=== PATIENT | female | born 1960 | race Caucasian/White ===

== ENCOUNTER → 2016-07-26 12:03 | Outpatient (CLI) | payer MEDICARE ==
[2014-08-24 09:40] VITALS: BMI 20.9
[~2016-07-26 12:03] MED LIST: AMBIEN5 MG PO; ATIVAN1 MG PO; CELEXA20 MG PO; COPAXONE INJ20 MG/ML SQ; ECOTRIN325 MG PO; MOBIC7.5 MG PO; MYRBETRIQ50 MG PO; PERCOCET 10/3251 TA1 PO; VOLTAREN100 GM TOPICAL
[2016-07-26 14:40] LABS: APPEARANCE TURBID (CLEAR); BACTERIA MODERATE /hpf (NONE SEEN); BILIRUBIN NEGATIVE (NEGATIVE); COLOR YELLOW (YELLOW); EPITHELIAL CELLS OCC /hpf (0-5); GLUCOSE NEGATIVE (NEGATIVE); KETONE NEGATIVE (NEGATIVE); LEUKOCYTE ESTERASE 2+ (NEGATIVE); MUCUS <1+ /lpf (NONE SEEN); NITRITE POSITIVE (NEGATIVE); PROTEIN 2+ mg/dL (NEGATIVE); RED CELLS - URINE >50 /hpf (0-5); SPECIFIC GRAVITY 1.015 (1.005-1.020); UROBILINOGEN NORMAL (NORMAL)
== END | disposition home or self-care (01) ==
LOC: D.LABREF 12:03
PROVIDERS: Family Medicine
DX: L02.212 Cutaneous abscess of back [any part, except buttock and flank] (principal); B95.62 Methicillin resistant Staphylococcus aureus infection as the cause of diseases classified elsewhere; G35 Multiple sclerosis

== ENCOUNTER 2017-09-14 12:59 | Emergency (ER) | payer MEDICARE ==
[2014-08-24 09:40] VITALS: BMI 20.9
[2017-09-14 14:40] LABS: BASOPHILS 0.3 % (0-2); HEMATOCRIT 38.4 % (36.0-48.0); HEMOGLOBIN 12.1 g/dL (12-16); IMMATURE GRANULOCYTES 0.2 % (0-5); MCH 29.6 pg (26.0-34.0); MCHC 31.5 g/dL (31.0-37.0); MCV 93.9 fL (80.0-100.0); MEAN PLATELET VOLUME 11.3 fL (7.4-10.4); MONOCYTES 8.6 % (2-11); NEUTROPHILS 71.9 % (40-80); PLATELET COUNT 214 10x3/uL (130-400); RBC 4.09 10x6/uL (4.00-5.40); RDW 13.9 % (11.5-14.5); WBC 9.4 10x3/uL (4.8-10.8)
[2017-09-14 14:56] LABS: ALBUMIN 2.7 g/dL (3.4-5.0); ALKALINE PHOSPHATASE 82 U/L (46-116); ALT (SGPT) 12 U/L (10-68); CALC OSMOLALITY 277 mosm/kg (275-300); CALCIUM 9.3 mg/dL (8.5-10.1); CARBON DIOXIDE 32.4 mmol/L (21.0-32.0); CHLORIDE - SERUM 103 mmol/L (98-107); CREATININE - SERUM 0.6 mg/dL (0.6-1.3); GLUCOSE 97 mg/dL (74-106); POTASSIUM - SERUM 3.9 mmol/L (3.5-5.1); PROTEIN - SERUM 7.5 g/dL (6.4-8.2); SODIUM 140 mmol/L (136-145); UREA NITROGEN 10 mg/dL (7-18); eGFR NON AFRICAN AMERICAN > 90 mL/min (90-120)
== END 2017-09-14 14:32 | disposition home or self-care (01) ==
LOC: D.ER 12:59
PROVIDERS: Physician Assistant
DX: K59.00 Constipation, unspecified (principal)

== ENCOUNTER 2018-01-26 10:48 | Emergency (ER) | payer MEDICARE ==
[~2018-01-26] VITALS: Ht 167.6 cm; Wt 63.6 kg
[2018-01-26 10:49] VITALS: BP 137/81; Ht 167.6 cm; Wt 63.6 kg
[2018-01-26] MEDS ORDERED: NEURONTIN 300300 MG PO (10:54)
[2018-01-26] MEDS ORDERED: OXYBUTYNIN CHLOR5 MG PO (10:54)
[2018-01-26] MEDS ORDERED: PEPCID AC20 MG PO (10:54)
[2018-01-26] MEDS ORDERED: ALENDRONATE SOD70 MG PO (10:55)
[2018-01-26] MEDS ORDERED: ZANAFLEX2 M1 PO (10:55)
[2018-01-26] MEDS ORDERED: ACETAMINOPHEN500 M1 PO (10:56)
[2018-01-26] MEDS ORDERED: TORADOL10 MG PO (13:33)
== END 2018-01-26 14:46 | disposition home or self-care (01) ==
LOC: D.ER 10:48
DX: S16.1XXA Strain of muscle, fascia and tendon at neck level, initial encounter (principal); X58.XXXA Exposure to other specified factors, initial encounter; Y93.89 Activity, other specified; Y92.019 Unspecified place in single-family (private) house as the place of occurrence of the external cause; S29.012A Strain of muscle and tendon of back wall of thorax, initial encounter; G35 Multiple sclerosis; M54.6 Pain in thoracic spine; G82.50 Quadriplegia, unspecified; K21.9 Gastro-esophageal reflux disease without esophagitis; Z85.828 Personal history of other malignant neoplasm of skin

== ENCOUNTER 2018-03-24 02:22 | Inpatient (IN) | payer MEDICARE ==
[~2018-03-24] VITALS: Ht 167.6 cm; Wt 63.6 kg
[2018-03-24] VITALS (11 sets, daily range): BP systolic 112–167; BP diastolic 52–94; Ht 167.6 cm; Wt 63.6 kg
--- NOTE | ~2018-03-24 | MORECARE ---
CASE MANAGEMENT DISCHARGE SUMMARY PATIENT: GINO CHRIS UNIT: [id number] ADM DATE: 03/24/18 AGE: 57 : 62 SEX: F ROOM/BED: D.2239 AUTHOR: CHRISTEL ANDERS PHYSICIAN: REFERRING PHYSICIAN: BRIAN SALES DO DATE OF SERVICE: 03/28/18 Discharge Plan Patient Name: [facility]INO CHRIS [facility] [facility] 1960 Planned Disposition: Home Anticipated Discharge Date: Discharge Date: Expected LOS: Initial Reviewer: [email or web address] Initial Review Date: 03/28/2018 Generated: 03/28/18 1:21 pm Patient Name: GINO CHRIS Page 71151 at 1221 All edits/amendments must be made on the electronic document DICTATION DATE: 03/28/18 1220 ELECTRICIAN UNDERGROUND: CHARLES 03/28/18 1220 RPT#: [id number] DC DATE: STATUS: ADM IN [facility] [address] [place] [address] END OF REPORT
--- NOTE | ~2018-03-24 | MORECARE ---
CASE MANAGEMENT DISCHARGE SUMMARY PATIENT: GINO CHRIS UNIT: [id number] ADM DATE: 03/24/18 AGE: 57 : 62 SEX: F ROOM/BED: D.2239 AUTHOR: CHRISTEL ANDERS PHYSICIAN: REFERRING PHYSICIAN: BRIAN SALES DO DATE OF SERVICE: 03/28/18 Discharge Plan Patient Name: GINO CHRIS Facility: [facility]:[place] : 1960 Planned Disposition: Home Anticipated Discharge Date: Discharge Date: Expected LOS: Initial Reviewer: [id number] Initial Review Date: 03/28/2018 Generated: 03/28/18 1:28 pm Comments DCP- Discharge Planning Updated by [email or web address]: Katelyn Vivas on 03/28/18 11:[address] Patient Name: GINO CHRIS Admission Status: ER Accout number: [id number] Admission Date: 03-24-2018 : 1960 Admission Diagnosis:ACUTE PYELONEPHRITIS Attending: BRIAN SALES Current LOS: 4 Anticipated DC Date: Planned Disposition: Home Primary Insurance: MEDICARE A & B Discharge Planning Comments: CM met with patient, she is alone in the room. She lives alone. She states she has [facility] come in twice a day. In the morning, they get her dressed and in her electric wheelchair. In the evening, they come back and get her night clothes in and back in bed. They prepare her meals. She is able to feed herself. States her meals come from "[employer]". States her sister, Michelle, also does grocery shopping for her. States she has a "hard telephone line" that she puts on her bedside table in the evening and also she has a life alert on a string if she had an emergency. She declines need for rehab and states she will not go to a fci. States she feels it is a safe discharge to return to her home with resumption of [facility] and home care. She will need to go home via an ambulance. CM will continue to follow and assist with discharge planning/needs. [facility] - [phone] Financial Sales Advisor: Katelyn Vivas DCPIA - Discharge Planning Initial Assessment Updated by [email or web address]: Katelyn Vivas on 03/28/18 12:22 pm * Is the patient Alert and Oriented? Yes * PCP Dr. Jackie Young * Pharmacy [facility] [address] * Preadmission Environment Home Alone * ADLs Partial Dependent * Partial ADLs (Assistance needed) Ambulation Bathing Dressing Toileting Transfers * Equipment Hospital Bed José Luis Lift Other Power Chair or Electric Scooter * Other Equipment Electric wheel chair Hand held remote for bed Air mattress on bed Life Alert on string * List name and contact numbers for known caregivers / representatives who currently or will assist patient after discharge: Michelle Chris [facility] - [phone] * Verbal permission to speak to the caregivers and representatives has been obtained from the patient. Yes * Community resources currently utilized Home Health Private Duty Care * Please name any agencies selected above. [facility] * Additional services required to return to the preadmission environment? No * Can the patient safely return to the preadmission environment? Yes * Has this patient been hospitalized within the prior 30 days at any hospital? No Last DP export: 03/28/18 11:21 a Patient Name: GINO CHRIS Page 41529 at 1228 All edits/amendments must be made on the electronic document DICTATION DATE: 03/28/181227 LUMP MACHINE OPERATOR: CHARLES 03/28/181227 RPT#: [id number] DC DATE: STATUS: ADM IN [facility] [address] [place] [address] END OF REPORT
--- NOTE | ~2018-03-24 | MORECARE ---
CASE MANAGEMENT DISCHARGE SUMMARY PATIENT: GINO CHRIS UNIT: [id number] ADM DATE: 03/24/18 AGE: 57 : 62 SEX: F ROOM/BED: D.2239 AUTHOR: CHRISTEL ANDERS PHYSICIAN: REFERRING PHYSICIAN: BRIAN SALES DO DATE OF SERVICE: 03/30/18 Discharge Plan Patient Name: GINO CHRIS Facility: [facility]:[place] : 1960 Planned Disposition: Home Anticipated Discharge Date: Discharge Date: Expected LOS: Initial Reviewer: [email or web address] Initial Review Date: 03/28/2018 Generated: 03/30/18 10:42 am Comments DCP- Discharge Planning Updated by [email or web address]: Katelyn Vivas on 03/30/18 8:[address] Restrepo has ordered blood cultures to be repeated today and does not agree to discharge today. Dr. Restrepo states need to wait a couple more days. I called Radha at home care and Haydee at [facility] [facility] and informed. I also informed the patient. She asked me to call her sister, Michelle. I called Michelle's number and left a voice mail to return call. CM will continue to follow and assist with discharge planning/needs. DCP- Discharge Planning Updated by [id number]: Katelyn Vivas on 03/30/18 8:[address] Discharging home today with [facility]. I called [employer] [facility] and spoke to Tammy. I called [employer] [facility] and spoke to Radha. She states to call when she is on the ambulance and an aide will meet her at the house. I gave name and number to call to her nurse, Kuldeep. payroll coordinator informed of need for ambulance. Discharging home with home health via ambulance. States "I always go home via ambulance." DCP- Discharge Planning Updated by [email or web address]: Katelyn Vivas on 03/28/18 11:[address] Patient Name: GINO CHRIS Admission Status: ER Accout number: [id number] Admission Date: 03-24-2018 : 1960 Admission Diagnosis:ACUTE PYELONEPHRITIS Attending: BRIAN SALES Current LOS: 4 Anticipated DC Date: Planned Disposition: Home Primary Insurance: MEDICARE A & B Discharge Planning Comments: CM met with patient, she is alone in the room. She lives alone. She states she has [facility] come in twice a day. In the morning, they get her dressed and in her electric wheelchair. In the evening, they come back and get her night clothes in and back in bed. They prepare her meals. She is able to feed herself. States her meals come from "[employer]". States her sister, Michelle, also does grocery shopping for her. States she has a "hard telephone line" that she puts on her bedside table in the evening and also she has a life alert on a string if she had an emergency. She declines need for rehab and states she will not go to a intermediate. States she feels it is a safe discharge to return to her home with resumption of [facility] home care. She will need to go home via an ambulance. CM will continue to follow and assist with discharge planning/needs. [facility] - [phone] Director Of Training: [facility] Discharge Planning Initial Assessment Updated by [email or web address]: Katelyn Vivas on 03/28/18 12:22 pm * Is the patient Alert and Oriented? Yes * PCP Dr. Jackie Young * Pharmacy [facility] * Preadmission Environment Home Alone * ADLs Partial Dependent * Partial ADLs (Assistance needed) Ambulation Bathing Dressing Toileting Transfers * Equipment Hospital Bed José Luis Lift Other Power Chair or Electric Scooter * Other Equipment Electric wheel chair Hand held remote for bed Air mattress on bed Life Alert on string * List name and contact numbers for known caregivers / representatives who currently or will assist patient after discharge: Michelle white - [phone] * Verbal permission to speak to the caregivers and representatives has been obtained from the patient. Yes * Community resources currently utilized Home Health Private Duty Care * Please name any agencies selected above. [facility] * Additional services required to return to the preadmission environment? No * Can the patient safely return to the preadmission environment? Yes * Has this patient been hospitalized within the prior 30 days at any hospital? No Coverage Notice Reviewer: [id number] - Katelyn Vivas Notice Issued Date-Time: 03/30/2018 8:55 Notice Type: IM Discharge Notice Notice Delivered To: Patient Relationship to Patient: Self Rn Icu Name: Delivery Method: HAND - Hand Delivered Araceli Days: Prior Verbal Notification: Recipient Understood Notice: Yes Recipient Signature: Yes Med Rec Note Co-signed by Attending: Coverage Notice Comment: IMM explained, signed, copy given, original placed in MR Last DP export: 03/30/18 8:08 a Patient Name: GINO CHRIS Page 65351 at 0942 All edits/amendments must be made on the electronic document DICTATION DATE: 03/30/18940 MANAGER HEART: CHARLES 03/30/18940 RPT#: [id number] DC DATE: STATUS: ADM IN [facility] [address] [place] [address] END OF REPORT
--- NOTE | ~2018-03-24 | MORECARE ---
CASE MANAGEMENT DISCHARGE SUMMARY PATIENT: GINO CHRIS UNIT: [id number] ADM DATE: 03/24/18 AGE: 57 : 62 SEX: F ROOM/BED: D.2239 AUTHOR: CHRISTEL ANDERS PHYSICIAN: REFERRING PHYSICIAN: BRIAN SALES DO DATE OF SERVICE: 03/30/18 Discharge Plan Patient Name: GINO CHRIS Facility: [facility]:[place] : 1960 Planned Disposition: Home Anticipated Discharge Date: Discharge Date: Expected LOS: Initial Reviewer: [id number] Initial Review Date: 03/28/2018 Generated: 03/30/18 10:08 am Comments DCP- Discharge Planning Updated by [id number]: Katelyn Vivas on 03/30/18 8:[address] Dis[facility]ing [facility] with [facility]. I called [facility] and spoke to Tammy. I called [facility] and spoke to Radha. She states to call when she is on the ambulance and an aide will meet her at the house. I gave name and number to call to her nurse, Kuldeep. sales program coordinator informed of need for ambulance. Discharging home with home health via ambulance. States "I always go home via ambulance." DCP- Discharge Planning Updated by [email or web address]: Katelyn Vivas on 03/28/18 11:[address] Patient Name: GINO CHRIS Admission Status: ER Accout number: [id number] Admission Date: 03-24-2018 : 1960 Admission Diagnosis:ACUTE PYELONEPHRITIS Attending: BRIAN SALES Current LOS: 4 Anticipated DC Date: Planned Disposition: Home Primary Insurance: MEDICARE A & B Discharge Planning Comments: CM met with patient, she is alone in the room. She lives alone. She states she has [facility] come in twice a day. In the morning, they get her dressed and in her electric wheelchair. In the evening, they come back and get her night clothes in and back in bed. They prepare her meals. She is able to feed herself. States her meals come from "[employer]". States her sister, Michelle, also does grocery shopping for her. States she has a "hard telephone line" that she puts on her bedside table in the evening and also she has a life alert on a string if she had an emergency. She declines need for rehab and states she will not go to a chcf. States she feels it is a safe discharge to return to her home with resumption of [facility] home care. She will need to go home via an ambulance. will continue to follow and assist with discharge planning/needs. [facility] - [phone] Chemist: Katelyn Ortega DCPIA - Discharge Planning Initial Assessment Updated by [email or web address]: Katelyn Vivas on 03/28/18 12:22 pm * Is the patient Alert and Oriented? Yes * PCP Dr. Jackie Young * Pharmacy [facility] * Preadmission Environment Home Alone * ADLs Partial Dependent * Partial ADLs (Assistance needed) Ambulation Bathing Dressing Toileting Transfers * Equipment Hospital Bed José Luis Lift Other Power Chair or Electric Scooter * Other Equipment Electric wheel chair Hand held remote for bed Air mattress on bed Life Alert on string * List name and contact numbers for known caregivers / representatives who currently or will assist patient after discharge: Michelle Chris [facility] [phone] * Verbal permission to speak to the caregivers and representatives has been obtained from the patient. Yes * Community resources currently utilized Home Health Private Duty Care * Please name any agencies selected above. [facility] * Additional services required to return to the preadmission environment? No * Can the patient safely return to the preadmission environment? Yes * Has this patient been hospitalized within the prior 30 days at any hospital? No External Providers [facility] Next Contact Date: Service Request Date: Service Type: Resolution: Reviewer: Comments: Coverage Notice Reviewer: [email or web address] - Katelyn Guerreroraul Notice Issued Date-Time: 03/30/2018 8:55 Notice Type: IM Discharge Notice Notice Delivered To: Patient Relationship to Patient: Self Slp Teacher Name: Delivery Method: HAND - Hand Delivered Araceli Days: Prior Verbal Notification: Recipient Understood Notice: Yes Recipient Signature: Yes Med Rec Note Co-signed by Attending: Coverage Notice Comment: IMM explained, signed, copy given, original placed in MR Last DP export: 03/28/18 11:28 a Patient Name: GINO CHRIS Page 90064 at 0908 All edits/amendments must be made on the electronic document DICTATION DATE: 03/30/18906 MASSAGE COORDINATOR: CHARLES 03/30/18906 RPT#: [id number] DC DATE: STATUS: ADM IN [facility] [address] [place] [address] END OF REPORT
--- NOTE | ~2018-03-24 | MORECARE ---
CASE MANAGEMENT DISCHARGE SUMMARY PATIENT: GINO CHRIS UNIT: [id number] ADM DATE: 03/24/18 AGE: 57 : 62 SEX: F ROOM/BED: D.2239 AUTHOR: MARTITA,CHRISTEL PHYSICIAN: REFERRING PHYSICIAN: BRIAN SALES DO DATE OF SERVICE: 04/01/18 Discharge Plan Patient Name: GINO CHRIS Facility: [facility]:[place] : 1960 Planned Disposition: Home Anticipated Discharge Date: Discharge Date: 03/31/2018 Expected LOS: 0 Initial Reviewer: [email or web address] Initial Review Date: 03/28/2018 Generated: 04/01/18 2:57 pm Comments DCP- Discharge Planning Updated by [email or web address]: Katelyn Vivas on 03/31/18 10:[address] Restrepo has agreed with discharge today. I called Radha with [facility] and I spoke with Renetta with [facility] and faxed clinical. She will go home via ambulance today with [facility]. CM will continue to follow and assist with discharge planning/needs DCP- Discharge Planning Updated by [id number]: Katelyn Vivas on 03/30/18 8:[address] Restrepo has ordered blood cultures to be repeated today and does not agree to discharge today. Dr. Restrepo states need to wait a couple more days. I called Radha at home care and Haydee at [employer] [facility] and informed. I also informed the patient. She asked me to call her sister, Michelle. I called Michelle's number and left a voice mail to return call. CM will continue to follow and assist with discharge planning/needs. DCP- Discharge Planning Updated by [email or web address]: Katelyn Vivas on 03/30/18 8:[address] Discharging home today with [facility]. I called [facility] and spoke to Tammy. I called [facility] and spoke to Radha. She states to call when she is on the ambulance and an aide will meet her at the house. I gave name and number to call to her nurse, Kuldeep. rehabilitation coordinator informed of need for ambulance. Discharging home with home health via ambulance. States "I always go home via ambulance." DCP- Discharge Planning Updated by [email or web address]: Katelyn Vivas on 03/28/18 11:[address] Patient Name: GINO CHRIS Admission Status: ER Accout number: [id number] Admission Date: 03-24-2018 : 1960 Admission Diagnosis:ACUTE PYELONEPHRITIS Attending: BRIAN SALES Current LOS: 4 Anticipated DC Date: Planned Disposition: Home Primary Insurance: MEDICARE A & B Discharge Planning Comments: CM met with patient, she is alone in the room. She lives alone. She states she has [facility] come in twice a day. In the morning, they get her dressed and in her electric wheelchair. In the evening, they come back and get her night clothes in and back in bed. They prepare her meals. She is able to feed herself. States her meals come from "[employer]". States her sister, Michelle, also does grocery shopping for her. States she has a "hard telephone line" that she puts on her bedside table in the evening and also she has a life alert on a string if she had an emergency. She declines need for rehab and states she will not go to a long term. States she feels it is a safe discharge to return to her home with resumption of [facility] home care. She will need to go home via an ambulance. CM will continue to follow and assist with discharge planning/needs. [facility] - [phone] Emergency Communications Operator: Katelyn Vivas DCPIA - Discharge Planning Initial Assessment Updated by [email or web address]: Katelyn Vivas on 03/28/18 12:22 pm * Is the patient Alert and Oriented? Yes * PCP Dr. Jackie Young * Pharmacy [facility] * Preadmission Environment Home Alone * ADLs Partial Dependent * Partial ADLs (Assistance needed) Ambulation Bathing Dressing Toileting Transfers * Equipment Hospital Bed José Luis Lift Other Power Chair or Electric Scooter * Other Equipment Electric wheel chair Hand held remote for bed Air mattress on bed Life Alert on string * List name and contact numbers for known caregivers / representatives who currently or will assist patient after discharge: Michelle Chris - sister - [phone] * Verbal permission to speak to the caregivers and representatives has been obtained from the patient. Yes * Community resources currently utilized Home Health Private Duty Care * Please name any agencies selected above. [facility] and [facility] * Additional services required to return to the preadmission environment? No * Can the patient safely return to the preadmission environment? Yes * Has this patient been hospitalized within the prior 30 days at any hospital? No Coverage Notice Reviewer: [email or web address] Sergei Vivas Notice Issued Date-Time: 03/30/2018 8:55 Notice Type: IM Discharge Notice Notice Delivered To: Patient Relationship to Patient: Self In Home Baby Sitter Name: Delivery Method: HAND - Hand Delivered Araceli Days: Prior Verbal Notification: Recipient Understood Notice: Yes Recipient Signature: Yes Med Rec Note Co-signed by Attending: Coverage Notice Comment: IMM explained, signed, copy given, original placed in MR Last DP export: 03/31/18 10:38 a Patient Name: GINO CHRIS Page 55911 at 1357 All edits/amendments must be made on the electronic document DICTATION DATE: 04/01/18 2787 RAIL BENDER: CHARLES 04/01/18 1357 RPT#: [id number] DC DATE:03/31/18 STATUS: DIS IN [facility] [address] [place] [address] END OF REPORT
--- NOTE | ~2018-03-24 | MORECARE ---
CASE MANAGEMENT DISCHARGE SUMMARY PATIENT: GINO CHRIS UNIT: [id number] ADM DATE: 03/24/18 AGE: 57 : 62 SEX: F ROOM/BED: D.2239 AUTHOR: MARTITA,CHRISTEL PHYSICIAN: REFERRING PHYSICIAN: BRIAN SALES DO DATE OF SERVICE: 03/31/18 Discharge Plan Patient Name: GINO CHRIS Facility: [facility]:[place] : 1960 Planned Disposition: Home Anticipated Discharge Date: Discharge Date: Expected LOS: Initial Reviewer: [email or web address] Initial Review Date: 03/28/2018 Generated: 03/31/18 12:38 pm Comments DCP- Discharge Planning Updated by [email or web address]: Katelyn Vivas on 03/31/18 10:[address] Restrepo has agreed with discharge today. I called Radha with [facility] and I spoke with Renetta with [facility] and faxed clinical. She will go home via ambulance today with [facility]. CM will continue to follow and assist with discharge planning/needs DCP- Discharge Planning Updated by [email or web address]: Katelyn Vivas on 03/30/18 8:[address] Restrepo has ordered blood cultures to be repeated today and does not agree to discharge today. Dr. Restrepo states need to wait a couple more days. I called Radha at home care and Haydee at [facility] and informed. I also informed the patient. She asked me to call her sister, Michelle. I called Michelle's number and left a voice mail to return call. CM will continue to follow and assist with discharge planning/needs. DCP- Discharge Planning Updated by [email or web address]: Katelyn Vivas on 03/30/18 8:[address] Discharging home today with [facility]. I called [facility] and spoke to Tammy. I called [facility] and spoke to Radha. She states to call when she is on the ambulance and an aide will meet her at the house. I gave name and number to call to her nurse, Kuldeep. donor relations coordinator informed of need for ambulance. Discharging home with home health via ambulance. States "I always go home via ambulance." DCP- Discharge Planning Updated by [id number]: Katelyn Vivas on 03/28/18 11:[address] Patient Name: GINO CHRIS Admission Status: ER Accout number: [id number] Admission Date: 03-24-2018 : 1960 Admission Diagnosis:ACUTE PYELONEPHRITIS Attending: BRIAN SALES Current LOS: 4 Anticipated DC Date: Planned Disposition: Home Primary Insurance: MEDICARE A & B Discharge Planning Comments: CM met with patient, she is alone in the room. She lives alone. She states she has [facility] come in twice a day. In the morning, they get her dressed and in her electric wheelchair. In the evening, they come back and get her night clothes in and back in bed. They prepare her meals. She is able to feed herself. States her meals come from "[employer] States her sister, Michelle, also does grocery shopping for her. States she has a "hard telephone line" that she puts on her bedside table in the evening and also she has a life alert on a string if she had an emergency. She declines need for rehab and states she will not go to a senior care. States she feels it is a safe discharge to return to her home with resumption of [facility] and home care. She will need to go home via an ambulance. CM will continue to follow and assist with discharge planning/needs. [facility] - [phone] Medical Technicians: Katelyn Guerreroraul DCPIA - Discharge Planning Initial Assessment Updated by [email or web address]: Katelyn Vivas on 03/28/18 12:22 pm * Is the patient Alert and Oriented? Yes * PCP Dr. Jackie Young * Pharmacy [facility] * Preadmission Environment Home Alone * ADLs Partial Dependent * Partial ADLs (Assistance needed) Ambulation Bathing Dressing Toileting Transfers * Equipment Hospital Bed José Luis Lift Other Power Chair or Electric Scooter * Other Equipment Electric wheel chair Hand held remote for bed Air mattress on bed Life Alert on string * List name and contact numbers for known caregivers / representatives who currently or will assist patient after discharge: Michelle Chris - sister - [phone] * Verbal permission to speak to the caregivers and representatives has been obtained from the patient. Yes * Community resources currently utilized Home Health Private Duty Care * Please name any agencies selected above. [facility] * Additional services required to return to the preadmission environment? No * Can the patient safely return to the preadmission environment? Yes * Has this patient been hospitalized within the prior 30 days at any hospital? No Coverage Notice Reviewer: [email or web address] Sergei Vivas Notice Issued Date-Time: 03/30/2018 8:55 Notice Type: IM Discharge Notice Notice Delivered To: Patient Relationship to Patient: Self Bakery Clerk Name: Delivery Method: HAND - Hand Delivered Araceli Days: Prior Verbal Notification: Recipient Understood Notice: Yes Recipient Signature: Yes Med Rec Note Co-signed by Attending: Coverage Notice Comment: IMM explained, signed, copy given, original placed in MR Last DP export: 03/30/18 8:42 a Patient Name: GINO CHRIS Page 34233 at 1138 All edits/amendments must be made on the electronic document DICTATION DATE: 03/31/181136 RANCH HAND: CHARLES 03/31/18 1137 RPT#: [id number] DC DATE: STATUS: ADM IN [facility] [address] [place] [address] END OF REPORT
[~2018-03-24 02:22] MED LIST changes: +ACETAMINOPHEN500 M1 PO; +ALENDRONATE SOD70 MG PO; +NEURONTIN 300300 MG PO; +OXYBUTYNIN CHLOR5 MG PO; +PEPCID AC20 MG PO; +TORADOL10 MG PO; +ZANAFLEX2 M1 PO
[2018-03-24 03:05] LABS: BASOPHILS 0.2 % (0-2); EOSINOPHILS 0.2 % (0-7); HEMATOCRIT 34.6 % (36.0-48.0); IMMATURE GRANULOCYTES 0.3 % (0-5); LYMPHOCYTES 14.4 % (15-50); MCH 28.8 pg (26.0-34.0); MCHC 31.8 g/dL (31.0-37.0); MCV 90.6 fL (80.0-100.0); MEAN PLATELET VOLUME 10.5 fL (7.4-10.4); MONOCYTES 7.4 % (2-11); NEUTROPHILS 77.5 % (40-80); PLATELET COUNT 255 10x3/uL (130-400); RBC 3.82 10x6/uL (4.00-5.40); RDW 14.9 % (11.5-14.5); WBC 11.4 10x3/uL (4.8-10.8)
[2018-03-24 03:11] LABS: APPEARANCE CLOUDY (CLEAR); BILIRUBIN NEGATIVE (NEGATIVE); COLOR YELLOW (YELLOW); GLUCOSE NEGATIVE (NEGATIVE); KETONE NEGATIVE (NEGATIVE); NITRITE POSITIVE (NEGATIVE); PROTEIN 1+ mg/dL (NEGATIVE); UROBILINOGEN NORMAL (NORMAL)
[2018-03-24 03:12] LABS: BACTERIA MANY /hpf (NONE SEEN); EPITHELIAL CELLS 0-5 /hpf (0-5); RED CELLS - URINE 0-5 /hpf (0-5)
[2018-03-24 03:21] LABS: APTT 28.8 SECONDS (22.8-39.4); INR 1.07 (0.85-1.17); PROTIME 13.4 SECONDS (11.6-15.0)
[2018-03-24 03:25] LABS: ALBUMIN 2.6 g/dL (3.4-5.0); ALKALINE PHOSPHATASE 73 U/L (46-116); ALT (SGPT) 10 U/L (10-68); BILIRUBIN - TOTAL 0.41 mg/dL (0.2-1.3); CALC OSMOLALITY 270 mosm/kg (275-300); CALCIUM 9.1 mg/dL (8.5-10.1); CARBON DIOXIDE 27.1 mmol/L (21.0-32.0); CHLORIDE - SERUM 98 mmol/L (98-107); CREATININE - SERUM 0.6 mg/dL (0.6-1.3); GLUCOSE 137 mg/dL (74-106); POTASSIUM - SERUM 3.1 mmol/L (3.5-5.1); PROTEIN - SERUM 7.4 g/dL (6.4-8.2); SODIUM 135 mmol/L (136-145); UREA NITROGEN 10 mg/dL (7-18); eGFR NON AFRICAN AMERICAN > 90 mL/min (90-120)
[2018-03-24 03:36] LABS: LIPASE 94 U/L (73-393)
[2018-03-24 03:43] LABS: TROPONIN-I < 0.017 ng/mL (0.000-0.060)
[2018-03-25 04:33] LABS: BASOPHILS 0.4 % (0-2); EOSINOPHILS 1.5 % (0-7); HEMATOCRIT 30.6 % (36.0-48.0); HEMOGLOBIN 9.6 g/dL (12-16); IMMATURE GRANULOCYTES 0.1 % (0-5); MCH 28.1 pg (26.0-34.0); MCHC 31.4 g/dL (31.0-37.0); MCV 89.5 fL (80.0-100.0); MEAN PLATELET VOLUME 10.4 fL (7.4-10.4); MONOCYTES 10.3 % (2-11); NEUTROPHILS 63.7 % (40-80); PLATELET COUNT 204 10x3/uL (130-400); RBC 3.42 10x6/uL (4.00-5.40); RDW 14.9 % (11.5-14.5)
[2018-03-25 04:37] LABS: WBC 8.1 10x3/uL (4.8-10.8)
[2018-03-25 04:47] LABS: ALBUMIN 2.1 g/dL (3.4-5.0); ALKALINE PHOSPHATASE 63 U/L (46-116); BILIRUBIN - TOTAL 0.41 mg/dL (0.2-1.3); CALCIUM 8.6 mg/dL (8.5-10.1); CARBON DIOXIDE 30.9 mmol/L (21.0-32.0); CHLORIDE - SERUM 100 mmol/L (98-107); CREATININE - SERUM 0.5 mg/dL (0.6-1.3); GLUCOSE 101 mg/dL (74-106); PROTEIN - SERUM 6.5 g/dL (6.4-8.2); SODIUM 137 mmol/L (136-145); eGFR NON AFRICAN AMERICAN > 90 mL/min (90-120)
[2018-03-25 05:02] LABS: ALT (SGPT) 7 U/L (10-68); CALC OSMOLALITY 271 mosm/kg (275-300); POTASSIUM - SERUM 3.6 mmol/L (3.5-5.1); UREA NITROGEN 6 mg/dL (7-18)
[2018-03-25 05:48] VITALS: BP 159/81
[2018-03-25 08:17] VITALS: BP 130/73
[2018-03-25 12:17] VITALS: BP 139/82
[2018-03-25 16:14] VITALS: BP 130/74
[2018-03-25 20:20] VITALS: BP 143/76
[2018-03-26 05:19] VITALS: BP 143/81
[2018-03-26 06:33] LABS: BASOPHILS 0.4 % (0-2); EOSINOPHILS 4.9 % (0-7); HEMATOCRIT 30.4 % (36.0-48.0); HEMOGLOBIN 9.7 g/dL (12-16); LYMPHOCYTES 21.6 % (15-50); MCH 28.8 pg (26.0-34.0); MCHC 31.9 g/dL (31.0-37.0); MCV 90.2 fL (80.0-100.0); MEAN PLATELET VOLUME 10.2 fL (7.4-10.4); NEUTROPHILS 62.1 % (40-80); PLATELET COUNT 200 10x3/uL (130-400); RBC 3.37 10x6/uL (4.00-5.40); RDW 14.9 % (11.5-14.5); WBC 5.7 10x3/uL (4.8-10.8)
[2018-03-26 07:19] LABS: ALKALINE PHOSPHATASE 64 U/L (46-116); ALT (SGPT) 7 U/L (10-68); BILIRUBIN - TOTAL 0.16 mg/dL (0.2-1.3); CALCIUM 8.2 mg/dL (8.5-10.1); CARBON DIOXIDE 28.4 mmol/L (21.0-32.0); CHLORIDE - SERUM 101 mmol/L (98-107); CREATININE - SERUM 0.6 mg/dL (0.6-1.3); GLUCOSE 110 mg/dL (74-106); POTASSIUM - SERUM 3.7 mmol/L (3.5-5.1); PROTEIN - SERUM 6.4 g/dL (6.4-8.2); SODIUM 137 mmol/L (136-145); eGFR NON AFRICAN AMERICAN > 90 mL/min (90-120)
[2018-03-26 07:20] LABS: CALC OSMOLALITY 272 mosm/kg (275-300); UREA NITROGEN 8 mg/dL (7-18)
[2018-03-26 09:05] VITALS: BP 167/87
[2018-03-26 13:33] VITALS: BP 130/82
[2018-03-26 16:27] VITALS: BP 140/87
[2018-03-26 21:08] VITALS: BP 145/79
[2018-03-27 05:03] VITALS: BP 154/80
[2018-03-27 06:32] LABS: BASOPHILS 0.5 % (0-2); EOSINOPHILS 6.4 % (0-7); HEMATOCRIT 31.6 % (36.0-48.0); HEMOGLOBIN 9.7 g/dL (12-16); LYMPHOCYTES 31.3 % (15-50); MCH 27.8 pg (26.0-34.0); MCHC 30.7 g/dL (31.0-37.0); MCV 90.5 fL (80.0-100.0); MEAN PLATELET VOLUME 10.6 fL (7.4-10.4); MONOCYTES 9.3 % (2-11); NEUTROPHILS 52.5 % (40-80); RBC 3.49 10x6/uL (4.00-5.40); RDW 15.2 % (11.5-14.5); WBC 6.2 10x3/uL (4.8-10.8)
[2018-03-27 06:52] LABS: PLATELET COUNT 262 10x3/uL (130-400)
[2018-03-27 07:18] LABS: ALBUMIN 2.1 g/dL (3.4-5.0); ALKALINE PHOSPHATASE 64 U/L (46-116); ALT (SGPT) 8 U/L (10-68); BILIRUBIN - TOTAL 0.16 mg/dL (0.2-1.3); CALC OSMOLALITY 283 mosm/kg (275-300); CALCIUM 8.6 mg/dL (8.5-10.1); CARBON DIOXIDE 29.3 mmol/L (21.0-32.0); CHLORIDE - SERUM 105 mmol/L (98-107); CREATININE - SERUM 0.6 mg/dL (0.6-1.3); GLUCOSE 94 mg/dL (74-106); POTASSIUM - SERUM 3.7 mmol/L (3.5-5.1); PROTEIN - SERUM 6.6 g/dL (6.4-8.2); SODIUM 143 mmol/L (136-145); UREA NITROGEN 10 mg/dL (7-18); eGFR NON AFRICAN AMERICAN > 90 mL/min (90-120)
[2018-03-27 08:43] VITALS: BP 152/85
[2018-03-27 12:38] VITALS: BP 127/79
[2018-03-27 16:50] VITALS: BP 135/78
[2018-03-27 20:47] VITALS: BP 136/78
[2018-03-28 05:01] VITALS: BP 138/62
[2018-03-28 06:12] LABS: BASOPHILS 0.4 % (0-2); EOSINOPHILS 9.8 % (0-7); HEMATOCRIT 29.7 % (36.0-48.0); HEMOGLOBIN 9.1 g/dL (12-16); IMMATURE GRANULOCYTES 0.2 % (0-5); LYMPHOCYTES 35.4 % (15-50); MCH 27.8 pg (26.0-34.0); MCHC 30.6 g/dL (31.0-37.0); MCV 90.8 fL (80.0-100.0); MEAN PLATELET VOLUME 10.5 fL (7.4-10.4); MONOCYTES 9.3 % (2-11); NEUTROPHILS 44.9 % (40-80); PLATELET COUNT 269 10x3/uL (130-400); RBC 3.27 10x6/uL (4.00-5.40); RDW 15.1 % (11.5-14.5); WBC 5.5 10x3/uL (4.8-10.8)
[2018-03-28 06:30] LABS: ALKALINE PHOSPHATASE 63 U/L (46-116); ALT (SGPT) 8 U/L (10-68); BILIRUBIN - TOTAL 0.11 mg/dL (0.2-1.3); CALC OSMOLALITY 280 mosm/kg (275-300); CALCIUM 8.3 mg/dL (8.5-10.1); CARBON DIOXIDE 29.8 mmol/L (21.0-32.0); CHLORIDE - SERUM 103 mmol/L (98-107); CREATININE - SERUM 0.7 mg/dL (0.6-1.3); GLUCOSE 104 mg/dL (74-106); PROTEIN - SERUM 6.1 g/dL (6.4-8.2); SODIUM 141 mmol/L (136-145); UREA NITROGEN 12 mg/dL (7-18); eGFR NON AFRICAN AMERICAN > 90 mL/min (90-120)
[2018-03-28 08:26] VITALS: BP 148/77
[2018-03-28 16:00] VITALS: BP 146/85
[2018-03-28 21:03] VITALS: BP 119/68; BP 173/103
[2018-03-29 00:52] VITALS: BP 121/62
[2018-03-29 05:57] VITALS: BP 115/72
[2018-03-29 06:20] LABS: BASOPHILS 0.5 % (0-2); EOSINOPHILS 8.7 % (0-7); HEMATOCRIT 30.8 % (36.0-48.0); HEMOGLOBIN 9.6 g/dL (12-16); IMMATURE GRANULOCYTES 0.2 % (0-5); LYMPHOCYTES 34.9 % (15-50); MCH 28.3 pg (26.0-34.0); MCHC 31.2 g/dL (31.0-37.0); MCV 90.9 fL (80.0-100.0); MEAN PLATELET VOLUME 10.7 fL (7.4-10.4); MONOCYTES 7.8 % (2-11); NEUTROPHILS 47.9 % (40-80); PLATELET COUNT 299 10x3/uL (130-400); RBC 3.39 10x6/uL (4.00-5.40); RDW 15.2 % (11.5-14.5); WBC 6.5 10x3/uL (4.8-10.8)
[2018-03-29 07:30] LABS: ALBUMIN 2.2 g/dL (3.4-5.0); ALKALINE PHOSPHATASE 60 U/L (46-116); ALT (SGPT) 8 U/L (10-68); BILIRUBIN - TOTAL 0.16 mg/dL (0.2-1.3); CALCIUM 8.8 mg/dL (8.5-10.1); CARBON DIOXIDE 31.1 mmol/L (21.0-32.0); CREATININE - SERUM 0.6 mg/dL (0.6-1.3); GLUCOSE 91 mg/dL (74-106); PROTEIN - SERUM 5.9 g/dL (6.4-8.2); UREA NITROGEN 11 mg/dL (7-18); eGFR NON AFRICAN AMERICAN > 90 mL/min (90-120)
[2018-03-29 07:51] LABS: CALC OSMOLALITY 281 mosm/kg (275-300); CHLORIDE - SERUM 103 mmol/L (98-107); POTASSIUM - SERUM 4.1 mmol/L (3.5-5.1); SODIUM 142 mmol/L (136-145)
[2018-03-29 08:20] VITALS: BP 134/72
[2018-03-29 12:25] VITALS: BP 138/78
[2018-03-29] MEDS ORDERED: LEVAQUIN750 MG PO (17:38)
[2018-03-29 21:31] VITALS: BP 157/77
[2018-03-30 05:05] LABS: BASOPHILS 0.4 % (0-2); EOSINOPHILS 8.6 % (0-7); HEMATOCRIT 31.3 % (36.0-48.0); HEMOGLOBIN 9.6 g/dL (12-16); IMMATURE GRANULOCYTES 0.3 % (0-5); LYMPHOCYTES 38.2 % (15-50); MCH 28.1 pg (26.0-34.0); MCHC 30.7 g/dL (31.0-37.0); MCV 91.5 fL (80.0-100.0); MEAN PLATELET VOLUME 10.2 fL (7.4-10.4); MONOCYTES 6.7 % (2-11); NEUTROPHILS 45.8 % (40-80); PLATELET COUNT 314 10x3/uL (130-400); RBC 3.42 10x6/uL (4.00-5.40); RDW 15.3 % (11.5-14.5); WBC 6.8 10x3/uL (4.8-10.8)
[2018-03-30 05:24] LABS: ALBUMIN 2.1 g/dL (3.4-5.0); ALKALINE PHOSPHATASE 69 U/L (46-116); ALT (SGPT) 5 U/L (10-68); BILIRUBIN - TOTAL 0.12 mg/dL (0.2-1.3); CALC OSMOLALITY 279 mosm/kg (275-300); CALCIUM 8.5 mg/dL (8.5-10.1); CARBON DIOXIDE 30.7 mmol/L (21.0-32.0); CHLORIDE - SERUM 104 mmol/L (98-107); CREATININE - SERUM 0.6 mg/dL (0.6-1.3); GLUCOSE 97 mg/dL (74-106); PROTEIN - SERUM 6.5 g/dL (6.4-8.2); SODIUM 141 mmol/L (136-145); UREA NITROGEN 11 mg/dL (7-18); eGFR NON AFRICAN AMERICAN > 90 mL/min (90-120)
[2018-03-30 06:19] VITALS: BP 113/73
[2018-03-30 09:08] VITALS: BP 149/91
[2018-03-30 12:13] VITALS: BP 136/76
[2018-03-30 17:07] VITALS: BP 121/71
[2018-03-30 20:45] VITALS: BP 140/80
[2018-03-31 01:09] VITALS: BP 154/84
[2018-03-31 06:28] LABS: BASOPHILS 0.4 % (0-2); EOSINOPHILS 8.3 % (0-7); HEMATOCRIT 32.5 % (36.0-48.0); HEMOGLOBIN 9.9 g/dL (12-16); IMMATURE GRANULOCYTES 0.3 % (0-5); LYMPHOCYTES 35.8 % (15-50); MCH 27.8 pg (26.0-34.0); MCHC 30.5 g/dL (31.0-37.0); MCV 91.3 fL (80.0-100.0); MEAN PLATELET VOLUME 10.7 fL (7.4-10.4); MONOCYTES 6.7 % (2-11); NEUTROPHILS 48.5 % (40-80); PLATELET COUNT 354 10x3/uL (130-400); RBC 3.56 10x6/uL (4.00-5.40); RDW 15.4 % (11.5-14.5); WBC 7.1 10x3/uL (4.8-10.8)
[2018-03-31 06:39] LABS: CALC OSMOLALITY 281 mosm/kg (275-300); CALCIUM 8.5 mg/dL (8.5-10.1); CARBON DIOXIDE 30.6 mmol/L (21.0-32.0); CHLORIDE - SERUM 104 mmol/L (98-107); CREATININE - SERUM 0.6 mg/dL (0.6-1.3); GLUCOSE 82 mg/dL (74-106); POTASSIUM - SERUM 4.1 mmol/L (3.5-5.1); SODIUM 142 mmol/L (136-145); UREA NITROGEN 13 mg/dL (7-18); eGFR NON AFRICAN AMERICAN > 90 mL/min (90-120)
[2018-03-31 08:33] VITALS: BP 142/78
[2018-03-31] MEDS ORDERED: LEVAQUIN750 MG PO (11:36)
== END 2018-03-31 17:02 | disposition home or self-care (01) | DRG 871 ==
LOC: D.ER 02:22 → D.EDHOLD 05:27 → D.MS 05:27
PROVIDERS: Family Medicine; Internal Medicine Nephrology
DX: A41.9 Sepsis, unspecified organism (principal); R53.2 Functional quadriplegia; N10 Acute pyelonephritis; K56.49 Other impaction of intestine; G35 Multiple sclerosis; E87.6 Hypokalemia; K21.9 Gastro-esophageal reflux disease without esophagitis

== ENCOUNTER 2018-05-15 08:14 | Inpatient (IN) | payer MEDICARE ==
[2018-05-15] VITALS (14 sets, daily range): BP systolic 83–145; BP diastolic 49–81; BMI 23.4
[~2018-05-15] VITALS: Ht 167.6 cm; Wt 67.1 kg
[~2018-05-15 08:14] MED LIST changes: +LEVAQUIN750 MG PO
[2018-05-15 08:52] LABS: ALBUMIN 3.3 g/dL (3.4-5.0); ALKALINE PHOSPHATASE 70 U/L (46-116); ALT (SGPT) 16 U/L (10-68); BILIRUBIN - TOTAL 0.55 mg/dL (0.2-1.3); CALC OSMOLALITY 278 mosm/kg (275-300); CALCIUM 9.2 mg/dL (8.5-10.1); CHLORIDE - SERUM 102 mmol/L (98-107); CREATININE - SERUM 0.7 mg/dL (0.6-1.3); GLUCOSE 116 mg/dL (74-106); LIPASE 83 U/L (73-393); POTASSIUM - SERUM 3.8 mmol/L (3.5-5.1); PROTEIN - SERUM 7.3 g/dL (6.4-8.2); SODIUM 139 mmol/L (136-145); UREA NITROGEN 13 mg/dL (7-18); eGFR NON AFRICAN AMERICAN > 90 mL/min (90-120)
--- NOTE | 2018-05-15 09:02 | NUR ---
ON ARRIVAL MULTIPLE UNKNOWN PILLS FOUND DOWN PT'S SHIRT. PT REPORTS SHE "SPILLED THEM AND COULDN'T PICK THEM UP". PILLS PLACED IN URINE CUP AND SENT TO PHARMACY. RED/WHITE/BLUE CAPSULE = 2 YELLOW CAPSULE = 9 WHITE OVAL TABLET = 69
[2018-05-15 09:17] LABS: APPEARANCE CLOUDY (CLEAR); BILIRUBIN NEGATIVE (NEGATIVE); COLOR YELLOW (YELLOW); GLUCOSE NEGATIVE (NEGATIVE); KETONE NEGATIVE (NEGATIVE); NITRITE POSITIVE (NEGATIVE); PROTEIN 1+ mg/dL (NEGATIVE); SPECIFIC GRAVITY 1.015 (1.005-1.020); UROBILINOGEN NORMAL (NORMAL)
[2018-05-15 09:19] LABS: BACTERIA MANY /hpf (NONE SEEN); EPITHELIAL CELLS 0-5 /hpf (0-5); RED CELLS - URINE 0-5 /hpf (0-5)
[2018-05-15 09:30] LABS: BASOPHILS 0.2 % (0-2); EOSINOPHILS 0.8 % (0-7); HEMATOCRIT 40.9 % (36.0-48.0); HEMOGLOBIN 13.2 g/dL (12-16); IMMATURE GRANULOCYTES 0.2 % (0-5); MCH 29.5 pg (26.0-34.0); MCHC 32.3 g/dL (31.0-37.0); MCV 91.3 fL (80.0-100.0); MEAN PLATELET VOLUME 11.8 fL (7.4-10.4); MONOCYTES 2.1 % (2-11); NEUTROPHILS 88.7 % (40-80); RBC 4.48 10x6/uL (4.00-5.40); RDW 15.9 % (11.5-14.5)
[2018-05-15 09:32] LABS: PLATELET COUNT 234 10x3/uL (130-400)
--- NOTE | 2018-05-15 10:00 | NUR ---
BACTRIM INFUSION COMPLETE AT THIS TIME.
--- NOTE | 2018-05-15 11:16 | NUR ---
PT RESTING QUIETLY IN BED, PAIN 06/05, VS WNL, DENIES NEEDS AT THIS TIME
--- NOTE | 2018-05-15 12:20 | NUR ---
BP 81/48. DR ROSA NOTIFIED. MINIMAL URINE IN GALVAN. 500ML BOLUS STARTED
--- NOTE | 2018-05-15 13:42 | NUR ---
PT REMAINS HYPOTENSIVE, BP 85/58. RESTING QUIETLY, AWAKES TO VOICE. ANSWERING QUESTIONS APPROP. BP INCREASES TO 90'S SYSTOLIC WHEN AWAKE. DENIES NEEDS AT THIS TIME. WILL MONITOR
--- NOTE | 2018-05-15 14:07 | MORECARE ---
CASE MANAGEMENT DISCHARGE SUMMARY PATIENT: GINO CHRIS R UNIT: [id number] ADM DATE: 05/15/18 AGE: 58 : 62 SEX: F ROOM/BED: D.3104 AUTHOR: CHRISTEL ANDERS PHYSICIAN: REFERRING PHYSICIAN: MOHSEN CARLIN MD DATE OF SERVICE: 05/15/18 Discharge Plan Patient Name: GINO CHRIS Facility: [facility]:[place] : 1960 Planned Disposition: Home with Home Health Anticipated Discharge Date: 05/20/18 Discharge Date: Expected LOS: 5 Initial Reviewer: [email or web address] Initial Review Date: 05/15/2018 Generated: 05/15/18 3:07 pm DCPIA - Discharge Planning Initial Assessment Updated by [email or web address]: So Partida on 05/15/18 2:03 pm * Is the patient Alert and Oriented? Yes * How many steps to enter\exit or inside your home? None * PCP Doesn't have one at this time * [facility] * Preadmission Environment Home Alone * ADLs Partial Dependent * Partial ADLs (Assistance needed) Ambulation Bathing Dressing Toileting Transfers * Equipment Wheelchair * List name and contact numbers for known caregivers / representatives who currently or will assist patient after discharge: Michelle Chris [facility] - [phone] * Verbal permission to speak to the caregivers and representatives has been obtained from the patient. Yes * Community resources currently utilized Home Health Private Duty Care * Please name any agencies selected above. [facility] for aide services. * Additional services required to return to the preadmission environment? No * Can the patient safely return to the preadmission environment? Yes * Has this patient been hospitalized within the prior 30 days at any hospital? No Patient Name: GINO CHRIS Page 88700 at 1407 All edits/amendments must be made on the electronic document DICTATION DATE: 05/15/18 1407 CIRCUIT WALKER: CHARLES 05/15/18 1407 RPT#: [id number] DC DATE: STATUS: ADM IN [place] [id number] [place] [id number] END OF REPORT
--- NOTE | 2018-05-15 14:19 | MORECARE ---
CASE MANAGEMENT DISCHARGE SUMMARY PATIENT: GINO CHRIS UNIT: [id number] ADM DATE: 05/15/18 AGE: 58 : 62 SEX: F ROOM/BED: D.9460 AUTHOR: MARTITADOC PHYSICIAN: REFERRING PHYSICIAN: MOHSEN CARLIN MD DATE OF SERVICE: 05/15/18 Discharge Plan Patient Name: GINO CHRIS Facility: [facility]:[place] : 1960 Planned Disposition: Home with Home Health Anticipated Discharge Date: 05/20/18 Discharge Date: Expected LOS: 5 Initial Reviewer: [email or web address] Initial Review Date: 05/15/2018 Generated: 05/15/18 3:19 pm DCP- Discharge Planning Updated by [email or web address]: So Partida on 05/15/18 1:[address] Patient Name: GINO CHRIS Admission Status: ER Accout number: [id number] Admission Date: 05-15-2018 : 1960 Admission Diagnosis: Attending: MOHSEN CARLIN Current LOS: 1 Anticipated DC Date: 05-20-2018 Planned Disposition: Home with Home Health - [facility] Primary Insurance: MEDICARE A & B Discharge Planning Comments: CM met with patient to complete initial dc planning assessment. CM educated patient on the CM role and verbal consent given by patient to complete assessment. Patient lives at home alone and reports she has aides that come in the morning and get her out of the bed to her wheelchair and then comes back in the evenings and put her back to bed. She has muscular sclerosis and is wheelchair bound. She reports she is able to manage at home once she is up in her chair. She stated she wears depends and the aides change this each time they come. At discharge patient plans to return home alone and feels this is a safe discharge. Patient also has a hospital bed. Patient denied known discharge needs at this time. CM will continue to follow and will assist as needed with dc plans/needs. Lead Electrician: So Partida RN, [facility] DCPIA - Discharge Planning Initial Assessment Updated by [email or web address]: So Partida on 05/15/18 2:03 pm * Is the patient Alert and Oriented? Yes * How many steps to enter\exit or inside your home? None * PCP Doesn't have one at this time * [facility]acy [facility] * Preadmission Environment Home Alone * ADLs Partial Dependent * Partial ADLs (Assistance needed) Ambulation Bathing Dressing Toileting Transfers * Equipment Wheelchair * List name and contact numbers for known caregivers / representatives who currently or will assist patient after discharge: Michelle Chris [facility] - [phone] * Verbal permission to speak to the caregivers and representatives has been obtained from the patient. Yes * Community resources currently utilized Home Health Private Duty Care * Please name any agencies selected above. [facility] for aide services. * Additional services required to return to the preadmission environment? No * Can the patient safely return to the preadmission environment? Yes * Has this patient been hospitalized within the prior 30 days at any hospital? No Last DP export: 05/15/18 1:07 p Patient Name: GINO CHRIS Page 62687 at 1419 All edits/amendments must be made on the electronic document DICTATION DATE: 05/15/181418 MECHANICAL PROJECT MANAGER: CHARLES 05/15/181418 RPT#: [id number] DC DATE: STATUS: ADM IN [facility] [address] [place] [address] END OF REPORT
--- NOTE | 2018-05-15 14:29 | NUR ---
PT REMAINS HYPOTENSIVE, BP 74/47. DR ROSA INFORMED. VERBAL ORDER RECIEVED FROM DR ROSA FOR 1000ML NS BOLUS. WILL MONITOR
--- NOTE | 2018-05-15 14:54 | NUR ---
EDU, MOE INFORMED OF PT'S BP.
--- NOTE | 2018-05-15 15:08 | NUR ---
3RD LITER NS COMPLETE, BP 91/56. DENIES NEEDS AT THIS TIME
--- NOTE | 2018-05-15 15:30 | NUR ---
EDP MOE ON PHONE WITH DR. CARLIN REGARDING PATIENT STATUS.
--- NOTE | 2018-05-15 16:13 | NUR ---
PT BLADDER SCANNED AND SHOWS 0 ML MEASURED VOLUME TO BE IN BLADDER. EDP, MOE INFORMED.
--- NOTE | 2018-05-15 16:45 | NUR ---
MOE SORENSEN, APPROVES FOR PATIENT TO BE TRANSPORTED TO FLOOR AT THIS TIME.
--- NOTE | 2018-05-15 16:57 | NUR ---
500 ML URINE OUTPUT EMPTIED FROM PT'S GALVAN CATH AT THIS TIME.
--- NOTE | 2018-05-15 17:21 | NUR ---
TRANSFER FROM ER BY STRETCHER. OREINTED TO ROOM. CALL LIGHT IN REACH. WILL CONT. PLAN OF CARE.
--- NOTE | 2018-05-15 17:42 | NUR ---
PT TO THE FLOOR. CNAS HELPED CLEAN PT UP.
--- NOTE | 2018-05-15 19:30 | NUR ---
RECEIVED REPORT, WILL ASSUME CARE OF PT, CED WHYTE WITH GALVAN PLACEMENT PER , HELPED REPOSITION PT, BED IS LOW, SRX2, CALL LIGHT IN REACH, WILL CONTINUE PLAN OF CARE
--- NOTE | 2018-05-15 19:44 | NUR ---
REMOVED PT'S GALVAN PER DOCTOR YRIS ORDER. PLACE NEW GALVAN PER STERILE PROCEEDURE. PT TOLERATED WELL. CALL LIGTH WITHIN REACH AND BED IN LOWEST POSITION.
[2018-05-15] MEDS ORDERED: ATIVAN0.5 MG PO (20:01)
[2018-05-15] MEDS ORDERED: ULTRAM50 MG PO (20:03)
--- NOTE | 2018-05-15 21:00 | NUR ---
SPOKE WITH DR. CARLIN, RECEIVED AND ORDER FOR ATIVAN AND TRAMADOL
[2018-05-16 04:30] VITALS: BP 120/68
--- NOTE | 2018-05-16 05:00 | NUR ---
PT RESTING IN BED WITH NO DISTRESS. RESPS EVEN/NONLABORED. CALL LIGHT IN REACH. MONITOR AND CPOC.
--- NOTE | 2018-05-16 07:39 | NUR ---
REPORT RECEIVED. WILL CONTINUE WITH POC. PT CURRENTLY LYING SUPINE. CALL LIGHT W/I REACH. PT IS AAO AND BEDFAST. RR EVEN AND UNLABORED ON 2L 02. NS INFUSING @125ML/HR VIA L.FOR PIV. PT DENIES ANY NEEDS AT THIS TIME. WILL CTM.
--- NOTE | 2018-05-16 09:49 | NUR ---
AM MEDICATIONS ADMINISTERED. PT DENIES ANY NEEDS AT THIS TIME. WILL CTM.
[2018-05-16 10:14] VITALS: BP 102/57
[2018-05-16 12:39] VITALS: Ht 167.6 cm; Wt 67.1 kg
--- NOTE | 2018-05-16 14:32 | NUR ---
EMPTIED PT GALVAN AND RECORDED A TOTAL OF 2000ML PALE YELLOW URINE. CAREGIVER AT BEDSIDE. PT REPORTED OF SHOULDER PAIN. GOT PATIENT AN ICE BAG FOR HER SHOULDER PER HER REQUEST. PT DENEIES ANY FURTHER NEEDS. WILL CTM.
--- NOTE | 2018-05-16 17:13 | NUR ---
SITTING UP IN BED WATCHING TV. NO SIGNS OF DISTRESS. CHRISTIANO BENAVIDEZ RESUMES PLAN OF CARE.
[2018-05-16 18:56] LABS: ALBUMIN 2.7 g/dL (3.4-5.0); ALKALINE PHOSPHATASE 47 U/L (46-116); ALT (SGPT) 13 U/L (10-68); BILIRUBIN - TOTAL 0.15 mg/dL (0.2-1.3); CALCIUM 8.4 mg/dL (8.5-10.1); CARBON DIOXIDE 24.8 mmol/L (21.0-32.0); CHLORIDE - SERUM 105 mmol/L (98-107); CREATININE - SERUM 0.7 mg/dL (0.6-1.3); GLUCOSE 95 mg/dL (74-106); PROTEIN - SERUM 6.7 g/dL (6.4-8.2); SODIUM 141 mmol/L (136-145); eGFR NON AFRICAN AMERICAN > 90 mL/min (90-120)
[2018-05-16 18:57] LABS: CALC OSMOLALITY 278 mosm/kg (275-300); UREA NITROGEN 6 mg/dL (7-18)
--- NOTE | 2018-05-16 19:30 | NUR ---
RECEIVED REPORT, WILL ASSUME CARE OF PT, PT IS SLEEPING, BED IS LOW, SRX3. CALL LIGHT IN REACH, WILL CONTINUE PLAN OF CARE
[2018-05-16 19:53] LABS: BASOPHILS 0.3 % (0-2); EOSINOPHILS 1.5 % (0-7); HEMOGLOBIN 10.6 g/dL (12-16); LYMPHOCYTES 21.4 % (15-50); MCH 28.6 pg (26.0-34.0); MCHC 31.2 g/dL (31.0-37.0); MCV 91.6 fL (80.0-100.0); MEAN PLATELET VOLUME 11.1 fL (7.4-10.4); MONOCYTES 11.3 % (2-11); NEUTROPHILS 65.5 % (40-80); PLATELET COUNT 171 10x3/uL (130-400); RBC 3.71 10x6/uL (4.00-5.40); RDW 15.8 % (11.5-14.5); WBC 5.9 10x3/uL (4.8-10.8)
[2018-05-16 19:55] VITALS: BP 145/76
[2018-05-17 00:11] VITALS: BP 110/68
[2018-05-17 03:50] VITALS: BP 137/33
[2018-05-17 06:50] LABS: ALBUMIN 2.7 g/dL (3.4-5.0); ALKALINE PHOSPHATASE 50 U/L (46-116); ALT (SGPT) 13 U/L (10-68); BILIRUBIN - TOTAL 0.16 mg/dL (0.2-1.3); C-REACTIVE PROTEIN 8.8 mg/dL (0.0-0.9); CALC OSMOLALITY 281 mosm/kg (275-300); CALCIUM 8.6 mg/dL (8.5-10.1); CARBON DIOXIDE 25.2 mmol/L (21.0-32.0); CHLORIDE - SERUM 107 mmol/L (98-107); CREATININE - SERUM 0.7 mg/dL (0.6-1.3); GLUCOSE 71 mg/dL (74-106); POTASSIUM - SERUM 3.8 mmol/L (3.5-5.1); PROTEIN - SERUM 6.8 g/dL (6.4-8.2); SODIUM 144 mmol/L (136-145); UREA NITROGEN 5 mg/dL (7-18); eGFR NON AFRICAN AMERICAN > 90 mL/min (90-120)
--- NOTE | 2018-05-17 07:00 | NUR ---
RECEIVED REPORT. ASSUMED CARE OF PATIENT. CALL LIGHT WITHIN REACH. RESTING WITH EYES CLOSED, EASILY AROUSED. NO DISTRESS.
[2018-05-17 07:26] LABS: BASOPHILS 0.6 % (0-2); EOSINOPHILS 2.1 % (0-7); HEMATOCRIT 38.2 % (36.0-48.0); HEMOGLOBIN 11.9 g/dL (12-16); IMMATURE GRANULOCYTES 0.2 % (0-5); LYMPHOCYTES 31.9 % (15-50); MCH 28.6 pg (26.0-34.0); MCHC 31.2 g/dL (31.0-37.0); MCV 91.8 fL (80.0-100.0); MONOCYTES 12.4 % (2-11); NEUTROPHILS 52.8 % (40-80); PLATELET COUNT 199 10x3/uL (130-400); RBC 4.16 10x6/uL (4.00-5.40); RDW 16.1 % (11.5-14.5); WBC 5.2 10x3/uL (4.8-10.8)
--- NOTE | 2018-05-17 09:04 | NUR ---
MEDICATED FOR PAIN AT THIS TIME. NO DISTRESS.
[2018-05-17 09:47] VITALS: BP 165/95
--- NOTE | 2018-05-17 14:12 | NUR ---
RESTING IN BED WITH EYES OPEN, ATTENTION TOWARD TELEVISION. NO DISTRESS. CALL LIGHT WITH IN REACH.
--- NOTE | 2018-05-17 14:43 | NUR ---
REPOSITIONED PATIENT AT THIS TIME. NO DISTRESS.
[2018-05-17] MEDS ORDERED: CIPRO500 MG PO (16:02)
--- NOTE | 2018-05-17 16:36 | MORECARE ---
CASE MANAGEMENT DISCHARGE SUMMARY PATIENT: GINO CHRIS UNIT: [id number] ADM DATE: 05/15/18 AGE: 58 : 62 SEX: F ROOM/BED: D.3016 AUTHOR: MARTITADOC PHYSICIAN: REFERRING PHYSICIAN: MOHSEN CARLIN MD DATE OF SERVICE: 05/17/18 Discharge Plan Patient Name: GINO CHRIS Facility: [facility]:[place] : 1960 Planned Disposition: Home with Home Health Anticipated Discharge Date: 05/17/18 Discharge Date: Expected LOS: 2 Initial Reviewer: [email or web address] Initial Review Date: 05/15/2018 Generated: 05/17/18 5:36 pm DCP- Discharge Planning Updated by [email or web address]: So Partida on 05/15/18 1:[address] Patient Name: GINO CHRIS Admission Status: ER Accout number: [id number] Admission Date: 05-15-2018 : 1960 Admission Diagnosis: Attending: MOHSEN CARLIN Current LOS: 1 Anticipated DC Date: 05-20-2018 Planned Disposition: Home with Home [facility] - [facility] Primary Insurance: MEDICARE A & B Discharge Planning Comments: CM met with patient to complete initial dc planning assessment. CM educated patient on the CM role and verbal consent given by patient to complete assessment. Patient lives at home alone and reports she has aides that come in the morning and get her out of the bed to her wheelchair and then comes back in the evenings and put her back to bed. She has muscular sclerosis and is wheelchair bound. She reports she is able to manage at home once she is up in her chair. She stated she wears depends and the aides change this each time they come. At discharge patient plans to return home alone and feels this is a safe discharge. Patient also has a hospital bed. Patient denied known discharge needs at this time. CM will continue to follow and will assist as needed with dc plans/needs. Power Screwdriver Operator: So Partida RN, [facility] DCPIA - Discharge Planning Initial Assessment Updated by [email or web address]: So Partida on 05/15/18 2:03 pm * Is the patient Alert and Oriented? Yes * How many steps to enter\exit or inside your home? None * PCP Doesn't have one at this time * Pharmacy [facility] * Preadmission Environment Home Alone * ADLs Partial Dependent * Partial ADLs (Assistance needed) Ambulation Bathing Dressing Toileting Transfers * Equipment Wheelchair * List name and contact numbers for known caregivers / representatives who currently or will assist patient after discharge: Michelle Chris [facility] - [phone] * Verbal permission to speak to the caregivers and representatives has been obtained from the patient. Yes * Community resources currently utilized Home Health Private Duty Care * Please name any agencies selected above. [facility] for aide services. * Additional services required to return to the preadmission environment? No * Can the patient safely return to the preadmission environment? Yes * Has this patient been hospitalized within the prior 30 days at any hospital? No Last DP export: 05/15/18 1:19 p Patient Name: GINO CHRIS Page 11679 at 1636 All edits/amendments must be made on the electronic document DICTATION DATE: 05/17/18 1636 DEPENDENCY CASE MANAGER: CHARLES 05/17/18 1636 RPT#: [id number] DC DATE: STATUS: ADM IN [facility] [address] [place] [address] END OF REPORT
--- NOTE | 2018-05-17 16:44 | MORECARE ---
CASE MANAGEMENT DISCHARGE SUMMARY PATIENT: GINO CHRIS UNIT: [id number] ADM DATE: 05/15/18 AGE: 58 : 62 SEX: F ROOM/BED: D.5992 AUTHOR: MARTITADOC PHYSICIAN: REFERRING PHYSICIAN: MOHSEN CARLIN MD DATE OF SERVICE: 05/17/18 Discharge Plan Patient Name: GINO CHRIS Facility: [facility]:[place] : 1960 Planned Disposition: Home with Home Health Anticipated Discharge Date: 05/17/18 Discharge Date: Expected LOS: 2 Initial Reviewer: [email or web address] Initial Review Date: 05/15/2018 Generated: 05/17/18 5:44 pm DCP- Discharge Planning Updated by [email or web address]: So Partida on 05/15/18 1:[address] Patient Name: GINO CHRIS Admission Status: ER Accout number: [id number] Admission Date: 05-15-2018 : 1960 Admission Diagnosis: Attending: MOHSEN CARLIN Current LOS: 1 Anticipated DC Date: 05-20-2018 Planned Disposition: Home with Home [facility] - [facility] Primary Insurance: MEDICARE A & B Discharge Planning Comments: CM met with patient to complete initial dc planning assessment. CM educated patient on the CM role and verbal consent given by patient to complete assessment. Patient lives at home alone and reports she has aides that come in the morning and get her out of the bed to her wheelchair and then comes back in the evenings and put her back to bed. She has muscular sclerosis and is wheelchair bound. She reports she is able to manage at home once she is up in her chair. She stated she wears depends and the aides change this each time they come. At discharge patient plans to return home alone and feels this is a safe discharge. Patient also has a hospital bed. Patient denied known discharge needs at this time. CM will continue to follow and will assist as needed with dc plans/needs. Technician Test Systems: So Partida RN, [facility] DCPIA - Discharge Planning Initial Assessment Updated by [id number]: So Partida on 05/15/18 2:03 pm * Is the patient Alert and Oriented? Yes * How many steps to enter\exit or inside your home? None * PCP Doesn't have one at this time * Pharmacy [facility] * Preadmission Environment Home Alone * ADLs Partial Dependent * Partial ADLs (Assistance needed) Ambulation Bathing Dressing Toileting Transfers * Equipment Wheelchair * List name and contact numbers for known caregivers / representatives who currently or will assist patient after discharge: Michelle Chris [facility] - [phone] * Verbal permission to speak to the caregivers and representatives has been obtained from the patient. Yes * Community resources currently utilized Home Health Private Duty Care * Please name any agencies selected above. [facility] for aide services. * Additional services required to return to the preadmission environment? No * Can the patient safely return to the preadmission environment? Yes * Has this patient been hospitalized within the prior 30 days at any hospital? No External Providers External Provider: [employer] Next Contact Date: 05/17/2018 Service Request Date: Service Type: Resolution: Reviewer: Comments: Coverage Notice Reviewer: [email or web address] Sergei Conway Notice Issued Date-Time: 05/17/2018 16:20 Notice Type: IM Discharge Notice Notice Delivered To: Patient Relationship to Patient: [employer] Name: Delivery Method: HAND - Hand Delivered Araceli Days: Prior Verbal Notification: Recipient Understood Notice: Yes Recipient Signature: Yes Med Rec Note Co-signed by Attending: Coverage Notice Comment: Last DP export: 05/17/18 3:36 p Patient Name: GINO CHRIS Page 01198 at 1644 All edits/amendments must be made on the electronic document DICTATION DATE: 05/17/181643 RADIO RECORDER: CHARLES 05/17/181643 RPT#: [id number] DC DATE: STATUS: ADM IN [facility] [address] [place] [address] END OF REPORT
--- NOTE | 2018-05-17 17:03 | MORECARE ---
CASE MANAGEMENT DISCHARGE SUMMARY PATIENT: GINO CHRIS UNIT: [id number] ADM DATE: 05/15/18 AGE: 58 : 62 SEX: F ROOM/BED: D.4712 AUTHOR: MARTITA,DOC PHYSICIAN: REFERRING PHYSICIAN: MOHSEN CARLIN MD DATE OF SERVICE: 05/17/18 Discharge Plan Patient Name: GINO CHRIS Facility: [facility]:[place] : 1960 Planned Disposition: Home with Home Health Anticipated Discharge Date: 05/17/18 Discharge Date: Expected LOS: 2 Initial Reviewer: [email or web address] Initial Review Date: 05/15/2018 Generated: 05/17/18 6:02 pm Comments DCP- Discharge Planning Updated by [email or web address]: Ben Conway on 05/17/18 3:[address] Patient Name: GINO CHRIS Encounter No: [id number] : 1960 Primary Insurance: MEDICARE A & B Anticipated DC Date: 05-17-2018 Planned Disposition: Home with Home Health External Planned Provider: [facility] DCP follow-up note: CM SPOKE TO DR. LOZOYA WHO IS DISCHARGING PT TODAY AND PT WILL NEED AMBULANCE HOME. CM PROVIDED WITH AMBULANCE "PCS" FORM WHICH DOCTOR FILLED OUT AND SIGNED. PLACED IN FRONT OF CHART, DECK SPECIALIST NURSE NOTIFIED. CM MET WITH PT IN ROOM, PT WANTS TO GO HOME, DENIES NEEDS OTHER THAN HOME HEALTH TO BE RESUMED. PT CALLED HER CAREGIVER MALGORZATA, WHO WILL RECEIVE PT AT HOME. PT PROVIDED PERMISSION FOR STAFF TO SPEAK TO HER CAREGIVER, MALGORZATA, REGARDING HER TREATMENT AND CARE. MALGORZATA ASKED FOR BEDSIDE NURSE TO CALL HER SHE HAS QUESTIONS REGARDING IF THE CATHETER CAN BE REMOVED. DECK SPECIALIST NURSE NOTIFIED, DETAILED NOTE WITH CONTACT INFORMATION OF CAREGIVER LEFT ON FRONT OF CHART. IMPORTANT MESSAGE FROM MEDICARE PROVIDED AND EXPLAINED. CM CALLED [facility], , SPOKE TO JLUIS, REFERRAL PROVIDED, PT PLACED ON SCHEDULE FOR RESUMPTION OF HOME HEALTH TOMORROW. CM FAXED REFERRAL AND DISCHARGE INFORMATION FAXED TO T[facility] , . PT ASKED FOR HER CAREGIVER, MALGORZATA, , TO BE CALLED BY NURSE PRIOR TO DISCHARGE HOME TO ANSWER QUESTIONS CAREGIVER HAS REGARDING PT'S HOME CARE. Ben Conway, CASE MANGEMENT DCP- Discharge Planning Updated by [id number]: So Partida on 05/15/18 1:[address] Patient Name: GINO CHRIS Admission Status: ER Accout number: [id number] Admission Date: 05-15-2018 : 1960 Admission Diagnosis: Attending: MOHSEN CARLIN Current LOS: 1 Anticipated DC Date: 05-20-2018 Planned Disposition: Home with Home Health [facility] Primary Insurance: MEDICARE A & B Discharge Planning Comments: CM met with patient to complete initial dc planning assessment. CM educated patient on the CM role and verbal consent given by patient to complete assessment. Patient lives at home alone and reports she has aides that come in the morning and get her out of the bed to her wheelchair and then comes back in the evenings and put her back to bed. She has muscular sclerosis and is wheelchair bound. She reports she is able to manage at home once she is up in her chair. She stated she wears depends and the aides change this each time they come. At discharge patient plans to return home alone and feels this is a safe discharge. Patient also has a hospital bed. Patient denied known discharge needs at this time. CM will continue to follow and will assist as needed with dc plans/needs. Advertisement Compositor: So Partida RN, [facility] DCPIA - Discharge Planning Initial Assessment Updated by [id number]: So Partida on 05/15/18 2:03 pm * Is the patient Alert and Oriented? Yes * How many steps to enter\\exit or inside your home? None * PCP Doesn't have one at this time * Pharmacy [facility] /[place] * Preadmission Environment Home Alone * ADLs Partial Dependent * Partial ADLs (Assistance needed) Ambulation Bathing Dressing Toileting Transfers * Equipment Wheelchair * List name and contact numbers for known caregivers / representatives who currently or will assist patient after discharge: Michelle Chris - [facility] - [phone] * Verbal permission to speak to the caregivers and representatives has been obtained from the patient. Yes * Community resources currently utilized Home Health Private Duty Care * Please name any agencies selected above. [facility] for aide services. * Additional services required to return to the preadmission environment? No * Can the patient safely return to the preadmission environment? Yes * Has this patient been hospitalized within the prior 30 days at any hospital? No Coverage Notice Reviewer: [id number] Sergei Conway Notice Issued Date-Time: 05/17/2018 16:20 Notice Type: IM Discharge Notice Notice Delivered To: Patient Relationship to Patient: Incident Response Consultant Name: Delivery Method: HAND - Hand Delivered Araceli Days: Prior Verbal Notification: Recipient Understood Notice: Yes Recipient Signature: Yes Med Rec Note Co-signed by Attending: Coverage Notice Comment: Last DP export: 05/17/18 3:44 p Patient Name: GINO CHRIS Page [id number] at 1703 All edits/amendments must be made on the electronic document DICTATION DATE: 05/17/181701 HOSE FINISHER: CHARLES 05/17/181701 RPT#: [id number] DC DATE: STATUS: ADM IN [facility] [address] [place] [address] END OF REPORT
--- NOTE | 2018-05-17 18:57 | NUR ---
20 GAUGE IV REMOVED FROM LEFT HAND. CATHETER TIP INTACT. NO BLEEDING FROM SITE. 2X2 GAUZE APPLIED AND SECURED WITH TAPE. TOLERATED IV REMOVAL WELL. TELEMETRY REMOVED. DISCHARGE INSTRUCTIONS PROVIDED TO PATIENT. PATIENT VERBALIZED UNDERSTANDING OF ALL INSTRUCTIONS PROVIDED. ALL OF PATIENTS BELONGINGS BAGGED UP AND READY TO BE TRANSPORTED WITH PATIENT.
--- NOTE | 2018-05-17 19:25 | NUR ---
[employer] CALLED AND REPORT GIVEN AFTER REQUESTING TRANSPORT TO PATIENTS HOME. [facility] ON THEIR WAY AT THIS TIME. CALLED MALGORZATA, PATIENTS CAREGIVER @ [phone] TO LET HER KNOW PATIENT WOULD BE LEAVING HOSPITAL IN ABOUT 15 MINUTES. REPORT GIVEN TO ONCOMING NURSE.
== END 2018-05-17 21:00 | disposition home health service (06) | DRG 698 ==
LOC: D.ER 08:14 → D.EDHOLD 08:46 → D.M2 08:46 → D.EDHOLD 16:20 → D.M2 16:45
PROVIDERS: Emergency Medicine; Family Medicine; ADMIT Internal Medicine Nephrology
DX: T83.511A Infection and inflammatory reaction due to indwelling urethral catheter, initial encounter (principal); A41.9 Sepsis, unspecified organism; R53.2 Functional quadriplegia; Y84.9 Medical procedure, unspecified as the cause of abnormal reaction of the patient, or of later complication, without mention of misadventure at the time of the procedure; N39.0 Urinary tract infection, site not specified; M25.511 Pain in right shoulder; E86.9 Volume depletion, unspecified; G35 Multiple sclerosis; G72.89 Other specified myopathies; F32.9 Major depressive disorder, single episode, unspecified; F41.9 Anxiety disorder, unspecified

== ENCOUNTER → 2018-11-23 13:15 | Outpatient (CLI) | payer MEDICARE ==
[2018-05-16 12:39] VITALS: BMI 23.3
[~2018-11-23 13:15] MED LIST changes: +ATIVAN0.5 MG PO; +CIPRO500 MG PO; +ULTRAM50 MG PO
[2018-11-23 14:15] LABS: ALBUMIN 3.3 g/dL (3.4-5.0); BILIRUBIN - DIRECT 0.07 mg/dL (0.00-0.30); BILIRUBIN - INDIRECT 0.2 mg/dL (0.00-1.00); BILIRUBIN - TOTAL 0.27 mg/dL (0.2-1.3); PROTEIN - SERUM 7.4 g/dL (6.4-8.2)
== END | disposition home or self-care (01) ==
LOC: D.LABREF 13:15
PROVIDERS: ATTEND Podiatrist Foot & Ankle Surgery
DX: B35.1 Tinea unguium (principal)